=== PATIENT | female | born 1975 | race Caucasian/White ===

== ENCOUNTER 2022-07-15 02:16 | Emergency (ER) | payer OTHER ==
[~2022-07-15] VITALS: Ht 167.6 cm; Wt 108.9 kg
[~2022-07-15 02:16] MED LIST: B12,B-12,B 12500 MC1 PO; BRIN10TA PO; BRIN20TA PO; CARBAMAZEPINE200 MG PO; CLONAZEPAM0.5 M2 PO; CLONAZEPAM1 MG PO; CYMBALTA60 MG PO; IMITREX25 M1 PO; KLONOPIN1 M1 PO; LATU80TA PO; LATUDA80 M1 PO; MIRTAZAPINE15 M2 PO; OLANZAPINE10 MG PO; SEROQUEL XR50 MG PO; TEGRETOL-XR 10100 MG PO; TOPAMAX50 MG PO; Tegretol-Xr 10100 MG PO; VITAMIN D-40400 UNIT PO; VITAMIN D50000 I3 PO; ZOCOR20 MG PO
[2022-07-15 02:41] LABS: BASO % 0.6 % (0.0-1.0); HEMATOCRIT 42.1 % (37.0-47.0); LYMPH # 2.4 10*3/uL (1.3-4.4); LYMPH % 33.8 % (27.0-41.0); MEAN CELL VOLUME 89.4 fl (81.0-99.0); MEAN CORPUSCULAR HGB 29.3 pg (27.0-31.0); MEAN CORPUSCULAR HGB CONC 32.8 g/dl (33.0-37.0); MEAN PLATELET VOLUME 9.2 fl (9.6-12.3); MONO # 0.6 10*3/uL (0.1-1.0); NEUT # 4.1 10*3/uL (2.3-7.9); NEUT % 57.5 % (47.0-73.0); PLATELET COUNT AUTOMATED 298 10*3/uL (130-400); RED BLOOD COUNT 4.71 10*6/uL (4.10-5.10); RED CELL DISTRI WIDTH 12.7 % (0-14.5); WHITE BLOOD COUNT 7.1 10*3/uL (4.8-10.8)
[2022-07-15 03:04] LABS: ALKALINE PHOSPHATASE 100 U/L (46-116); BUN 12 mg/dl (9-23); CHLORIDE 103 mmol/L (98-107); CPK 41 U/L (34-171); POTASSIUM 3.8 mmol/L (3.4-5.1); SGPT/ALT 10 U/L (10-49); TOTAL PROTEIN 7.5 gm/dL (6.0-8.0)
[2022-07-15 08:07] LABS: CARBAMAZEPINE (TEGRETOL) TOTAL 3.4 ug/ml (4-12)
== END 2022-07-15 03:47 | disposition home or self-care (01) ==
LOC: ED 02:16
PROVIDERS: Emergency Medicine
DX: G40.909 Epilepsy, unspecified, not intractable, without status epilepticus (principal); Z98.51 Tubal ligation status; Z90.49 Acquired absence of other specified parts of digestive tract

== ENCOUNTER 2022-07-21 05:44 | Emergency (ER) | payer OTHER ==
[~2022-07-21] VITALS: Ht 170.1 cm; Wt 115.9 kg
[2022-07-21 06:32] LABS: BASO % 0.4 % (0.0-1.0); EOS % 0.2 % (1.0-4.0); HEMATOCRIT 40.1 % (37.0-47.0); LYMPH # 0.7 10*3/uL (1.3-4.4); LYMPH % 12.9 % (27.0-41.0); MEAN CELL VOLUME 88.1 fl (81.0-99.0); MEAN CORPUSCULAR HGB 29.2 pg (27.0-31.0); MEAN CORPUSCULAR HGB CONC 33.2 g/dl (33.0-37.0); MEAN PLATELET VOLUME 8.8 fl (9.6-12.3); MONO # 0.5 10*3/uL (0.1-1.0); MONO % 8.5 % (3.0-9.0); NEUT # 4.4 10*3/uL (2.3-7.9); NEUT % 77.8 % (47.0-73.0); PLATELET COUNT AUTOMATED 256 10*3/uL (130-400); RED BLOOD COUNT 4.55 10*6/uL (4.10-5.10); RED CELL DISTRI WIDTH 12.9 % (0-14.5); WHITE BLOOD COUNT 5.7 10*3/uL (4.8-10.8)
[2022-07-21 06:47] LABS: ALKALINE PHOSPHATASE 102 U/L (46-116); BUN 6 mg/dl (9-23); CHLORIDE 100 mmol/L (98-107); SGPT/ALT 17 U/L (10-49); TOTAL PROTEIN 7.3 gm/dL (6.0-8.0)
[2022-07-21 06:53] LABS: ETHYL ALCOHOL < 3.0 mg/dl (<3)
[2022-07-21 10:39] LABS: BILIRUBIN Negative (Negative); BLOOD Negative (Negative); CLARITY Clear (Clear); COLOR Yellow (Yellow); GLUCOSE Negative (Negative); KETONE Trace (Negative); LEUKO ESTERASE Negative (Negative); NITRITE Negative (Negative); UROBILINOGEN 0.2 E.U./dl (0.0-1.0)
[2022-07-21 10:46] LABS: URINE AMPHETAMINES Negative (1000ng/ml); URINE BARBITURATES Negative (200ng/ml); URINE BENZODIAZEPINES Negative (200ng/ml); URINE CANNABINOIDS (THC) Negative (50ng/ml); URINE COCAINE Negative (300ng/ml); URINE METHADONE Negative (300ng/ml); URINE OPIATES Negative (300ng/ml); URINE PHENCYCLIDINE Negative (25ng/ml)
[2022-07-21 10:52] LABS: BACTERIA 2+; MUCOUS TRACE
== END 2022-07-21 11:12 | disposition home or self-care (01) ==
LOC: ED 05:44
PROVIDERS: Emergency Medicine; Internal Medicine
DX: U07.1 COVID-19 (principal); F43.20 Adjustment disorder, unspecified; F20.9 Schizophrenia, unspecified; R07.89 Other chest pain; Z98.51 Tubal ligation status; Z90.49 Acquired absence of other specified parts of digestive tract; Z79.899 Other long term (current) drug therapy

== ENCOUNTER 2022-12-02 08:13 | Emergency (ER) | payer OTHER ==
[~2022-12-02] VITALS: Ht 160 cm; Wt 120.2 kg
[2022-12-02] MEDS ORDERED: POLYMYXIN B/TRI10 M1 OPH (08:50)
[2022-12-02] MEDS ORDERED: AVPAK AZITHROM250 M1 PO (17:02)
== END 2022-12-02 09:32 | disposition home or self-care (01) ==
LOC: ED 08:13
DX: H57.9 Unspecified disorder of eye and adnexa (principal); B34.9 Viral infection, unspecified; F41.9 Anxiety disorder, unspecified; F32.A Depression, unspecified; E78.5 Hyperlipidemia, unspecified; Z98.51 Tubal ligation status; Z90.49 Acquired absence of other specified parts of digestive tract; Z98.890 Other specified postprocedural states; Z20.822 Contact with and (suspected) exposure to COVID-19

== ENCOUNTER 2022-12-02 15:01 | Emergency (ER) | payer OTHER ==
[~2022-12-02] VITALS: Ht 160 cm; Wt 117.9 kg
[~2022-12-02 15:01] MED LIST changes: +POLYMYXIN B/TRI10 M1 OPH
[2022-12-02] MEDS ORDERED: AVPAK AZITHROM250 M1 PO (17:02)
== END 2022-12-02 17:11 | disposition home or self-care (01) ==
LOC: ED 15:01
DX: F41.9 Anxiety disorder, unspecified (principal); J32.9 Chronic sinusitis, unspecified; F32.A Depression, unspecified; E78.5 Hyperlipidemia, unspecified; Z98.51 Tubal ligation status; Z90.49 Acquired absence of other specified parts of digestive tract; Z98.890 Other specified postprocedural states

== ENCOUNTER → 2022-12-11 | Outpatient (CLI) | payer OTHER ==
[~2022-12-11] MED LIST changes: +AVPAK AZITHROM250 M1 PO
[2022-12-11 09:22] LABS: BASO % 0.6 % (0.0-1.0); EOS % 0.1 % (1.0-4.0); HEMATOCRIT 40.9 % (37.0-47.0); LYMPH # 2.1 10*3/uL (1.3-4.4); LYMPH % 29.8 % (27.0-41.0); MEAN CELL VOLUME 87.8 fl (81.0-99.0); MEAN CORPUSCULAR HGB 29.8 pg (27.0-31.0); MEAN PLATELET VOLUME 8.8 fl (9.6-12.3); MONO # 0.6 10*3/uL (0.1-1.0); MONO % 8.9 % (3.0-9.0); NEUT # 4.2 10*3/uL (2.3-7.9); NEUT % 60.5 % (47.0-73.0); PLATELET COUNT AUTOMATED 318 10*3/uL (130-400); RED BLOOD COUNT 4.66 10*6/uL (4.10-5.10); RED CELL DISTRI WIDTH 12.3 % (0-14.5)
[2022-12-11 10:50] LABS: ALKALINE PHOSPHATASE 106 U/L (46-116); BUN 12 mg/dl (9-23); CHLORIDE 102 mmol/L (98-107); CHOLESTEROL 162 mg/dL (<200); LDL CHOLESTEROL 102 mg/dL (9-159); POTASSIUM 3.4 mmol/L (3.4-5.1); SGPT/ALT 19 U/L (10-49); TOTAL PROTEIN 7.7 gm/dL (6.0-8.0); TRIGLYCERIDES 97 mg/dl (<150)
== END | disposition home or self-care (01) ==
LOC: LAB 09:01
PROVIDERS: ATTEND Nurse Practitioner
DX: Z51.81 Encounter for therapeutic drug level monitoring (principal); F25.0 Schizoaffective disorder, bipolar type; F41.1 Generalized anxiety disorder

== ENCOUNTER 2023-01-23 04:57 | Emergency (ER) | payer OTHER ==
[~2023-01-23] VITALS: Ht 157.4 cm; Wt 99.8 kg
[2023-01-23 06:08] LABS: BILIRUBIN Negative (Negative); BLOOD Negative (Negative); CLARITY Clear (Clear); COLOR Yellow (Yellow); GLUCOSE Negative (Negative); KETONE Trace (Negative); LEUKO ESTERASE Negative (Negative); NITRITE Negative (Negative); SPECIFIC GRAVITY 1.025 (1.001-1.030)
[2023-01-23 06:13] LABS: BASO % 0.5 % (0.0-1.0); EOS % 0.1 % (1.0-4.0); LYMPH # 2.5 10*3/uL (1.3-4.4); LYMPH % 33.2 % (27.0-41.0); MEAN CELL VOLUME 90.1 fl (81.0-99.0); MEAN CORPUSCULAR HGB 29.5 pg (27.0-31.0); MEAN CORPUSCULAR HGB CONC 32.8 g/dl (33.0-37.0); MEAN PLATELET VOLUME 8.9 fl (9.6-12.3); MONO # 0.7 10*3/uL (0.1-1.0); NEUT # 4.3 10*3/uL (2.3-7.9); NEUT % 57.1 % (47.0-73.0); PLATELET COUNT AUTOMATED 295 10*3/uL (130-400); RED BLOOD COUNT 4.44 10*6/uL (4.10-5.10); RED CELL DISTRI WIDTH 12.6 % (0-14.5); WHITE BLOOD COUNT 7.5 10*3/uL (4.8-10.8)
[2023-01-23 06:14] LABS: URINE AMPHETAMINES Negative (1000ng/ml); URINE BARBITURATES Negative (200ng/ml); URINE BENZODIAZEPINES Negative (200ng/ml); URINE CANNABINOIDS (THC) Negative (50ng/ml); URINE COCAINE Negative (300ng/ml); URINE METHADONE Negative (300ng/ml); URINE OPIATES Negative (300ng/ml); URINE PHENCYCLIDINE Negative (25ng/ml)
[2023-01-23 06:18] LABS: BACTERIA 2+
[2023-01-23 06:19] LABS: WBC 0-2 wbc/hpf (0-5)
[2023-01-23 06:37] LABS: ALKALINE PHOSPHATASE 129 U/L (46-116); BUN 10 mg/dl (9-23); CHLORIDE 103 mmol/L (98-107); POTASSIUM 3.5 mmol/L (3.4-5.1); SGPT/ALT 12 U/L (10-49); TOTAL PROTEIN 7.1 gm/dL (6.0-8.0)
[2023-01-23 06:42] LABS: ETHYL ALCOHOL < 3.0 mg/dl (<3)
== END 2023-01-23 08:56 | disposition home or self-care (01) ==
LOC: ED 04:57
PROVIDERS: Emergency Medicine
DX: F43.22 Adjustment disorder with anxiety (principal); E78.5 Hyperlipidemia, unspecified; F31.9 Bipolar disorder, unspecified; G40.909 Epilepsy, unspecified, not intractable, without status epilepticus; F20.9 Schizophrenia, unspecified; Z79.899 Other long term (current) drug therapy; Z79.2 Long term (current) use of antibiotics; Z98.51 Tubal ligation status; Z90.49 Acquired absence of other specified parts of digestive tract; Z98.890 Other specified postprocedural states

== ENCOUNTER 2023-01-23 21:47 | Emergency (ER) | payer OTHER ==
[~2023-01-23] VITALS: Ht 167.6 cm; Wt 90.7 kg
== END 2023-01-23 23:05 | disposition home or self-care (01) ==
LOC: ED 21:47
DX: F41.9 Anxiety disorder, unspecified (principal); F32.A Depression, unspecified; E78.5 Hyperlipidemia, unspecified; Z98.51 Tubal ligation status; Z90.49 Acquired absence of other specified parts of digestive tract; Z98.890 Other specified postprocedural states

== ENCOUNTER 2023-04-20 07:58 | Emergency (ER) | payer OTHER ==
[~2023-04-20] VITALS: Ht 160 cm; Wt 114.9 kg
[2023-04-20] MEDS ORDERED: GOOD SENSE ACID20 MG PO (08:29)
[2023-04-20] MEDS ORDERED: VITAMIN B121000 MC1 PO (08:29)
[2023-04-20] MEDS ORDERED: VITAMIN D210 MCG PO (08:30)
[2023-04-20] MEDS ORDERED: CLARITIN10 MG PO (08:30)
[2023-04-20] MEDS ORDERED: ESCITALOPRAM OX20 MG PO (08:31)
[2023-04-20] MEDS ORDERED: MELATONIN5 M1 SL (08:32)
[2023-04-20] MEDS ORDERED: PROPRANOLOL HCL20 MG PO (08:32)
[2023-04-20] MEDS ORDERED: LIPITOR10 MG PO (08:33)
[2023-04-20] MEDS ORDERED: CARBAMAZEPINE400 M1 PO (08:33)
[2023-04-20] MEDS ORDERED: VITAMIN C500 M4 PO (08:33)
[2023-04-20] MEDS ORDERED: ABILIFY MAINTE300 MG IM (08:35)
[2023-04-20] MEDS ORDERED: BUSPIRONE10 MG PO (08:35)
[2023-04-20] MEDS ORDERED: FUROSEMIDE40 MG PO (08:37)
[2023-04-20] MEDS ORDERED: CEPHALEXIN500 M1 PO (08:38)
[2023-04-20] MEDS ORDERED: AMOX-CLAV 875-1 EACH PO (08:41)
== END 2023-04-20 08:45 | disposition home or self-care (01) ==
LOC: ED 07:58
DX: S61.452A Open bite of left hand, initial encounter (principal); L08.9 Local infection of the skin and subcutaneous tissue, unspecified; L03.114 Cellulitis of left upper limb; F17.210 Nicotine dependence, cigarettes, uncomplicated; W55.01XA Bitten by cat, initial encounter; Y93.89 Activity, other specified; Y92.89 Other specified places as the place of occurrence of the external cause; Y99.8 Other external cause status

== ENCOUNTER 2023-06-13 04:30 | Emergency (ER) | payer OTHER ==
[~2023-06-13] VITALS: Ht 160 cm; Wt 123.4 kg
[~2023-06-13 04:30] MED LIST changes: +ABILIFY MAINTE300 MG IM; +AMOX-CLAV 875-1 EACH PO; +BUSPIRONE10 MG PO; +CARBAMAZEPINE400 M1 PO; +CEPHALEXIN500 M1 PO; +CLARITIN10 MG PO; +ESCITALOPRAM OX20 MG PO; +FUROSEMIDE40 MG PO; +GOOD SENSE ACID20 MG PO; +LIPITOR10 MG PO; +MELATONIN5 M1 SL; +PROPRANOLOL HCL20 MG PO; +VITAMIN B121000 MC1 PO; +VITAMIN C500 M4 PO; +VITAMIN D210 MCG PO
[2023-06-13] MEDS ORDERED: CYCLOBENZAPRINE10 MG PO (06:38)
== END 2023-06-13 06:53 | disposition home or self-care (01) ==
LOC: ED 04:30
DX: M54.2 Cervicalgia (principal); F41.9 Anxiety disorder, unspecified; F32.A Depression, unspecified; E78.5 Hyperlipidemia, unspecified; Z90.49 Acquired absence of other specified parts of digestive tract; Z98.51 Tubal ligation status; Z98.890 Other specified postprocedural states

== ENCOUNTER 2023-06-14 16:10 | Emergency (ER) | payer OTHER ==
[~2023-06-14] VITALS: Ht 160 cm; Wt 116.6 kg
[~2023-06-14 16:10] MED LIST changes: +CYCLOBENZAPRINE10 MG PO
== END 2023-06-14 18:49 | disposition home or self-care (01) ==
LOC: ED 16:10
DX: M62.838 Other muscle spasm (principal); R51.9 Headache, unspecified; M54.2 Cervicalgia; F41.9 Anxiety disorder, unspecified; F32.A Depression, unspecified; E78.5 Hyperlipidemia, unspecified; Z90.49 Acquired absence of other specified parts of digestive tract; Z98.890 Other specified postprocedural states

== ENCOUNTER 2023-07-03 00:53 | Emergency (ER) | payer OTHER ==
[~2023-07-03] VITALS: Ht 160 cm; Wt 117.9 kg
[2023-07-03 01:57] LABS: BASO % 0.4 % (0.0-1.0); EOS % 0.1 % (1.0-4.0); HEMATOCRIT 43.8 % (37.0-47.0); LYMPH % 30.9 % (27.0-41.0); MEAN CELL VOLUME 91.6 fl (81.0-99.0); MEAN CORPUSCULAR HGB 28.9 pg (27.0-31.0); MEAN CORPUSCULAR HGB CONC 31.5 g/dl (33.0-37.0); MEAN PLATELET VOLUME 8.8 fl (9.6-12.3); MONO # 0.9 10*3/uL (0.1-1.0); NEUT # 5.7 10*3/uL (2.3-7.9); NEUT % 59.3 % (47.0-73.0); PLATELET COUNT AUTOMATED 285 10*3/uL (130-400); RED BLOOD COUNT 4.78 10*6/uL (4.10-5.10); RED CELL DISTRI WIDTH 13.2 % (0-14.5); WHITE BLOOD COUNT 9.6 10*3/uL (4.8-10.8)
[2023-07-03 02:35] LABS: ALKALINE PHOSPHATASE 112 U/L (46-116); BUN 11 mg/dl (9-23); CARBAMAZEPINE (TEGRETOL) TOTAL 4.1 ug/ml (4-12); CHLORIDE 103 mmol/L (98-107); ETHYL ALCOHOL < 3.0 mg/dl (<3); POTASSIUM 3.4 mmol/L (3.4-5.1); SGPT/ALT 18 U/L (5-49)
[2023-07-03 03:32] LABS: BILIRUBIN Negative (Negative); BLOOD Negative (Negative); CLARITY Clear (Clear); COLOR Yellow (Yellow); GLUCOSE Negative (Negative); KETONE Negative (Negative); LEUKO ESTERASE Negative (Negative); NITRITE Negative (Negative); UROBILINOGEN 0.2 E.U./dl (0.0-1.0)
[2023-07-03 03:39] LABS: URINE AMPHETAMINES Negative (1000ng/ml); URINE BARBITURATES Negative (200ng/ml); URINE BENZODIAZEPINES Negative (200ng/ml); URINE CANNABINOIDS (THC) Negative (50ng/ml); URINE COCAINE Negative (300ng/ml); URINE METHADONE Negative (300ng/ml); URINE OPIATES Negative (300ng/ml); URINE PHENCYCLIDINE Negative (25ng/ml)
[2023-07-03 03:44] LABS: EPITHELIAL CELLS 16-20; WBC 0-2 wbc/hpf (0-5)
== END 2023-07-03 04:42 | disposition home or self-care (01) ==
LOC: ED 00:53
PROVIDERS: Family Medicine
DX: R25.3 Fasciculation (principal); R56.9 Unspecified convulsions; F41.9 Anxiety disorder, unspecified; F32.A Depression, unspecified; E78.5 Hyperlipidemia, unspecified; Z90.49 Acquired absence of other specified parts of digestive tract; Z98.51 Tubal ligation status; Z98.890 Other specified postprocedural states

== ENCOUNTER 2023-08-06 08:42 | Emergency (ER) | payer OTHER ==
[~2023-08-06] VITALS: Ht 160 cm; Wt 117.9 kg
[2023-08-06] MEDS ORDERED: PREDNISONE50 MG PO (10:35)
[2023-08-06] MEDS ORDERED: ACETAMINOPHEN 325 MG TAB PO ONE (10:35)
[2023-08-06] MEDS ORDERED: predniSONE 20 MG TAB PO ONE (10:35)
== END 2023-08-06 10:53 | disposition home or self-care (01) ==
LOC: ED 08:42
DX: S46.812A Strain of other muscles, fascia and tendons at shoulder and upper arm level, left arm, initial encounter (principal); S50.02XA Contusion of left elbow, initial encounter; F41.9 Anxiety disorder, unspecified; F32.A Depression, unspecified; E78.5 Hyperlipidemia, unspecified; Z98.51 Tubal ligation status; Z90.49 Acquired absence of other specified parts of digestive tract; Z98.890 Other specified postprocedural states; W19.XXXA Unspecified fall, initial encounter; Y93.89 Activity, other specified; Y92.89 Other specified places as the place of occurrence of the external cause; Y99.8 Other external cause status

== ENCOUNTER 2023-09-12 14:30 | Emergency (ER) | payer OTHER ==
[~2023-09-12 14:30] MED LIST changes: +PREDNISONE50 MG PO
[2023-09-12] MEDS ORDERED: CEPHALEXIN500 M1 PO (14:55)
[2023-09-12] MEDS ORDERED: Bacitracin Zinc 14 GM TUBE T ONE (15:10)
== END 2023-09-12 15:26 | disposition home or self-care (01) ==
LOC: ED 14:30
DX: S80.812A Abrasion, left lower leg, initial encounter (principal); G40.909 Epilepsy, unspecified, not intractable, without status epilepticus; Z79.899 Other long term (current) drug therapy; Z98.51 Tubal ligation status; Z90.49 Acquired absence of other specified parts of digestive tract; Z98.890 Other specified postprocedural states; W01.0XXA Fall on same level from slipping, tripping and stumbling without subsequent striking against object, initial encounter; Y93.89 Activity, other specified; Y92.89 Other specified places as the place of occurrence of the external cause; Y99.8 Other external cause status

== ENCOUNTER 2024-02-07 13:48 | Emergency (ER) | payer OTHER ==
[~2024-02-07] VITALS: Ht 160 cm; Wt 90.7 kg
[~2024-02-07 13:48] MED LIST changes: +CARBAMAZEPINE100 M4 PO; -CARBAMAZEPINE400 M1 PO
[2024-02-07] MEDS ORDERED: LACOSAMIDE100 M1 PO (14:49)
[2024-02-07 14:59] LABS: BASO % 0.4 % (0.0-1.0); EOS % 0.1 % (1.0-4.0); HEMATOCRIT 40.4 % (37.0-47.0); LYMPH # 1.8 10*3/uL (1.3-4.4); LYMPH % 17.6 % (27.0-41.0); MEAN CELL VOLUME 87.8 fl (81.0-99.0); MEAN CORPUSCULAR HGB 29.8 pg (27.0-31.0); MEAN CORPUSCULAR HGB CONC 33.9 g/dl (33.0-37.0); MEAN PLATELET VOLUME 8.9 fl (9.6-12.3); MONO # 0.6 10*3/uL (0.1-1.0); MONO % 5.9 % (3.0-9.0); NEUT # 7.8 10*3/uL (2.3-7.9); NEUT % 75.5 % (47.0-73.0); PLATELET COUNT AUTOMATED 322 10*3/uL (130-400); RED CELL DISTRI WIDTH 13.2 % (0-14.5); WHITE BLOOD COUNT 10.3 10*3/uL (4.8-10.8)
[2024-02-07 15:04] LABS: BILIRUBIN Negative (Negative); BLOOD Negative (Negative); CLARITY Clear (Clear); COLOR Yellow (Yellow); GLUCOSE Negative (Negative); KETONE Trace (Negative); LEUKO ESTERASE Negative (Negative); NITRITE Negative (Negative); PH 7.5 (4.5-8.0); SPECIFIC GRAVITY 1.015 (1.001-1.030); UROBILINOGEN 0.2 E.U./dl (0.0-1.0)
[2024-02-07 15:12] LABS: BACTERIA TRACE; EPITHELIAL CELLS 16-20; URINE AMPHETAMINES Negative (1000ng/ml); URINE BARBITURATES Negative (200ng/ml); URINE BENZODIAZEPINES Negative (200ng/ml); URINE CANNABINOIDS (THC) Negative (50ng/ml); URINE COCAINE Negative (300ng/ml); URINE METHADONE Negative (300ng/ml); URINE OPIATES Negative (300ng/ml); URINE PHENCYCLIDINE Negative (25ng/ml); YEAST TRACE
[2024-02-07 15:16] LABS: BUN 8 mg/dl (9-23); CHLORIDE 106 mmol/L (98-107); CPK 78 U/L (34-171); POTASSIUM 3.5 mmol/L (3.4-5.1)
[2024-02-07 15:18] LABS: ETHYL ALCOHOL < 3.0 mg/dl (<3)
== END 2024-02-07 21:57 ==
LOC: ED 13:48
PROVIDERS: Nurse Practitioner Family
DX: F29 Unspecified psychosis not due to a substance or known physiological condition (principal); Z20.822 Contact with and (suspected) exposure to COVID-19; F41.9 Anxiety disorder, unspecified; F32.A Depression, unspecified; E78.5 Hyperlipidemia, unspecified; Z90.49 Acquired absence of other specified parts of digestive tract; Z98.51 Tubal ligation status; Z98.890 Other specified postprocedural states

== ENCOUNTER 2024-07-29 11:44 | Inpatient (IN) | payer OTHER ==
[~2024-07-29] VITALS: Ht 160 cm; Wt 123.4 kg
[2024-07-29] VITALS (7 sets, daily range): BP systolic 114–163; BP diastolic 61–94
[~2024-07-29 11:44] MED LIST changes: +LACOSAMIDE100 M1 PO
[2024-07-29] MEDS ORDERED: ZOLOFT50 MG PO (12:15)
[2024-07-29] MEDS ORDERED: CLONAZEPAM0.5 M2 PO (12:17)
[2024-07-29] MEDS ORDERED: TRAZODONE50 MG PO (12:18)
[2024-07-29] MEDS ORDERED: BUSPIRONE HCL10 MG PO (12:59)
[2024-07-29] MEDS ORDERED: Lactated Ringer's Solution 500 ML IV ONE ×2 (13:00→13:07)
[2024-07-29] MEDS ORDERED: HYDROXYZINE PAM25 M1 PO (14:43)
[2024-07-29] MEDS ORDERED: SEROQUEL XR200 MG PO (14:49)
[2024-07-29] MEDS ORDERED: ASPIRIN ENTERIC COATED 81 MG TAB PO SCH (15:25)
[2024-07-29 16:35] LABS: BASO % 0.1 % (0.0-1.0); HEMATOCRIT 38.8 % (37.0-47.0); MEAN CELL VOLUME 90.2 fl (81.0-99.0); MEAN CORPUSCULAR HGB 29.1 pg (27.0-31.0); MEAN CORPUSCULAR HGB CONC 32.2 g/dl (33.0-37.0); MEAN PLATELET VOLUME 8.3 fl (9.6-12.3); MONO # 0.2 10*3/uL (0.1-1.0); MONO % 2.6 % (3.0-9.0); NEUT # 5.8 10*3/uL (2.3-7.9); NEUT % 83.1 % (47.0-73.0); PLATELET COUNT AUTOMATED 301 10*3/uL (130-400); RED CELL DISTRI WIDTH 13.2 % (0-14.5); WHITE BLOOD COUNT 6.9 10*3/uL (4.8-10.8)
[2024-07-29] MEDS ORDERED: hydrOXYzine pamoate 25 MG CAP PO PRN (16:40)
[2024-07-29 16:55] LABS: ACT PARTIAL THROMBO TIME 29.6 SECONDS (20.0-32.1)
[2024-07-29 17:09] LABS: ALKALINE PHOSPHATASE 108 U/L (46-116); BUN 5 mg/dl (9-23); CHLORIDE 102 mmol/L (98-107); CHOLESTEROL 168 mg/dL (<200); LDL CHOLESTEROL 102 mg/dL (9-159); SGPT/ALT 12 U/L (5-49); TOTAL PROTEIN 7.8 gm/dL (6.0-8.0); TRIGLYCERIDES 60 mg/dl (<150); VITAMIN D, 25-HYDROXY 34.1 ng/mL (30-100)
[2024-07-29] MEDS ORDERED: ACETAMINOPHEN 325 MG TAB PO PRN (17:30)
[2024-07-29] MEDS ORDERED: PROPOFOL 200 MG/20 ML VIAL IV ONE (17:46)
[2024-07-29] MEDS ORDERED: Midazolam Hydrochloride 2 MG/2 ML VIAL IV ONE (17:46)
[2024-07-29] MEDS ORDERED: SEVOFLURANE 250 ML BOT INH ONE (17:46)
[2024-07-29] MEDS ORDERED: Lidocaine Hydrochloride 5 ML VIAL IV ONE (17:46)
[2024-07-29] MEDS ORDERED: Succinylcholine Chloride 200 MG/10 ML SYRINGE IV ONE (17:46)
[2024-07-29] MEDS ORDERED: fentaNYL CITRATE 100 MCG/2 ML VIAL IV ONE (17:46)
[2024-07-29] MEDS ORDERED: Ondansetron Hydrochloride 4 MG/2 ML VIAL IV ONE (17:46)
[2024-07-29] MEDS ORDERED: Dexamethasone Sodium Phospha 4 MG/ML VIAL IV ONE (17:46)
[2024-07-29] MEDS ORDERED: Pantoprazole Sodium 20 MG TAB PO ONE (18:00)
[2024-07-29] MEDS ORDERED: clonAZEPAM 0.5 MG TAB PO SCH (22:00)
[2024-07-29] MEDS ORDERED: Melatonin 5 MG TABLET PO SCH (22:00)
[2024-07-29] MEDS ORDERED: QUETIAPINE FUMARATE 100 MG TAB PO SCH (22:00)
[2024-07-29] MEDS ORDERED: carBAMazepine XR 100 MG TAB PO SCH (22:00)
[2024-07-30] VITALS: BP 106/59
[2024-07-30] MEDS ORDERED: Pantoprazole Sodium 20 MG TAB PO SCH (06:00)
[2024-07-30 06:17] LABS: BASO % 0.4 % (0.0-1.0); EOS % 0.3 % (1.0-4.0); HEMATOCRIT 36.2 % (37.0-47.0); MEAN CELL VOLUME 91.6 fl (81.0-99.0); MEAN CORPUSCULAR HGB 28.9 pg (27.0-31.0); MEAN CORPUSCULAR HGB CONC 31.5 g/dl (33.0-37.0); MEAN PLATELET VOLUME 8.7 fl (9.6-12.3); MONO # 0.6 10*3/uL (0.1-1.0); MONO % 7.4 % (3.0-9.0); NEUT # 4.7 10*3/uL (2.3-7.9); NEUT % 61.9 % (47.0-73.0); PLATELET COUNT AUTOMATED 291 10*3/uL (130-400); RED BLOOD COUNT 3.95 10*6/uL (4.10-5.10); RED CELL DISTRI WIDTH 13.4 % (0-14.5); WHITE BLOOD COUNT 7.6 10*3/uL (4.8-10.8)
[2024-07-30 06:31] LABS: BUN 12 mg/dl (9-23); CHLORIDE 102 mmol/L (98-107); POTASSIUM 3.6 mmol/L (3.4-5.1)
[2024-07-30 08:00] VITALS: BP 124/67
[2024-07-30] MEDS ORDERED: ATORVASTATIN CALCIUM 10 MG TAB PO SCH (10:00)
[2024-07-30] MEDS ORDERED: Sertraline Hydrochloride 50 MG TAB PO SCH (10:00)
[2024-07-30] MEDS ORDERED: LACOSAMIDE 50 MG TAB PO SCH (10:00)
[2024-07-30 16:00] VITALS: BP 117/71
[2024-07-30 20:00] VITALS: BP 112/78
[2024-07-31] VITALS: BP 121/64
[2024-07-31 08:00] VITALS: BP 108/61
[2024-07-31 12:00] VITALS: BP 112/59
[2024-07-31 16:00] VITALS: BP 112/59; BP 137/73
[2024-07-31 20:00] VITALS: BP 124/56
[2024-08-01] VITALS: BP 125/55
[2024-08-01 04:00] VITALS: BP 121/57
[2024-08-01 08:00] VITALS: BP 128/59
[2024-08-01] MEDS ORDERED: CLONAZEPAM0.5 M2 PO (11:13)
[2024-08-01] MEDS ORDERED: LACOSAMIDE100 M1 PO (11:13)
[2024-08-01 12:00] VITALS: BP 122/47
== END 2024-08-01 14:13 | DRG 342 ==
LOC: SDC 11:44 → 4E 12:48 → ICCU 12:48 → 4E 07-30 20:40
PROVIDERS: Orthopaedic Surgery; Student in an Organized Health Care Education/Training Program; ADMIT Family Medicine; ATTEND Family Medicine
PROC: 0PSJXZZ Reposition Left Radius, External Approach (ICD-10-PCS; principal; 2024-07-29)
PROC: 2W3FX1Z Immobilization of Left Hand using Splint (ICD-10-PCS; 2024-07-29)
DX: S52.132A Displaced fracture of neck of left radius, initial encounter for closed fracture (principal); E83.39 Other disorders of phosphorus metabolism; S53.135A Medial dislocation of left ulnohumeral joint, initial encounter; E78.5 Hyperlipidemia, unspecified; F32.A Depression, unspecified; F41.1 Generalized anxiety disorder; F20.9 Schizophrenia, unspecified; Z87.898 Personal history of other specified conditions; R73.9 Hyperglycemia, unspecified; Z98.51 Tubal ligation status; Z82.49 Family history of ischemic heart disease and other diseases of the circulatory system; Z83.3 Family history of diabetes mellitus; Z80.3 Family history of malignant neoplasm of breast; Z79.899 Other long term (current) drug therapy; W18.30XA Fall on same level, unspecified, initial encounter; Y93.89 Activity, other specified; Y92.89 Other specified places as the place of occurrence of the external cause; Y99.8 Other external cause status

== ENCOUNTER → 2024-08-10 | Outpatient (CLI) | payer OTHER ==
[~2024-08-10] MED LIST changes: +BUSPIRONE HCL10 MG PO; +HYDROXYZINE PAM25 M1 PO; +SEROQUEL XR200 MG PO; +TRAZODONE50 MG PO; +ZOLOFT50 MG PO
== END | disposition home or self-care (01) ==
LOC: ORTHO 03:18
PROVIDERS: ATTEND Orthopaedic Surgery
DX: S42.492D Other displaced fracture of lower end of left humerus, subsequent encounter for fracture with routine healing (principal); S52.132D Displaced fracture of neck of left radius, subsequent encounter for closed fracture with routine healing; X58.XXXD Exposure to other specified factors, subsequent encounter

== ENCOUNTER → 2024-08-31 | Outpatient (CLI) | payer OTHER | END | disposition home or self-care (01) | LOC: ORTHO 00:53 | PROVIDERS: ATTEND Orthopaedic Surgery | DX: S42.492A Other displaced fracture of lower end of left humerus, initial encounter for closed fracture (principal); S52.132A Displaced fracture of neck of left radius, initial encounter for closed fracture; X58.XXXA Exposure to other specified factors, initial encounter; Y93.89 Activity, other specified; Y92.89 Other specified places as the place of occurrence of the external cause; Y99.8 Other external cause status ==

== ENCOUNTER → 2024-09-25 | Outpatient (CLI) | payer OTHER | END | disposition home or self-care (01) | LOC: ORTHO 02:21 | PROVIDERS: ATTEND Orthopaedic Surgery | DX: S52.132D Displaced fracture of neck of left radius, subsequent encounter for closed fracture with routine healing (principal); X58.XXXD Exposure to other specified factors, subsequent encounter ==